=== PATIENT | male | born 1960 | race Caucasian/White ===

== ENCOUNTER → 2020-09-17 | Outpatient (CLI) | payer MEDICARE, OTHER ==
[~2020-09-17] MED LIST: ACTOS15 MG PO; AMLODIPINE BESYL5 MG PO; ASPIRIN81 MG PO; ATORVASTATIN CA80 MG PO; BACTRIM DS TAB1 EACH PO; CHLORTHALIDONE50 MG PO; CILOSTAZOL50 MG PO; CLINDAMYCIN HC300 MG PO; CLOPIDOGREL75 MG PO; COZAAR100 MG PO; GABAPENTIN300 MG PO; GLIPIZIDE10 MG PO; GLUCOPHAGE XR500 M1 PO; GLUCOTROL 10 MG10 MG PO; IMDUR ER TAB 3030 MG PO; ISOSORBIDE MONO30 MG PO; LIPITOR80 MG PO; LOPRESSOR 25 MG25 MG PO; LORTAB 7.5-3251 EACH PO; LOSARTAN POTAS100 MG PO; METFORMIN HCL500 M2 PO; METOPROLOL TART25 MG PO; NEURONTIN300 MG PO; NORVASC5 MG PO; PLAVIX75 MG PO
== END ==
LOC: KOH-I 13:13
DX: M14.671 Charcot's joint, right ankle and foot (principal); Z98.890 Other specified postprocedural states
CPT/HCPCS: 73630

== ENCOUNTER → 2020-10-15 | Outpatient (CLI) | payer MEDICARE, OTHER | LOC: KOH-I 11:28 | DX: M14.671 Charcot's joint, right ankle and foot (principal); S92.001A Unspecified fracture of right calcaneus, initial encounter for closed fracture; Z98.890 Other specified postprocedural states; X58.XXXA Exposure to other specified factors, initial encounter | CPT/HCPCS: 73610; 73630 ==

== ENCOUNTER → 2020-10-29 | Outpatient (CLI) | payer MEDICARE, OTHER | LOC: KOH-I 11:09 | DX: Z47.89 Encounter for other orthopedic aftercare (principal); M14.671 Charcot's joint, right ankle and foot | CPT/HCPCS: 73630 ==

== ENCOUNTER → 2020-11-26 | Outpatient (CLI) | payer MEDICARE, OTHER | LOC: KOH-I 10:47 | DX: M14.671 Charcot's joint, right ankle and foot (principal); T84.213A Breakdown (mechanical) of internal fixation device of bones of foot and toes, initial encounter; M19.071 Primary osteoarthritis, right ankle and foot | CPT/HCPCS: 73610; 73630 ==

== ENCOUNTER → 2020-12-03 | Outpatient (CLI) | payer MEDICARE, OTHER ==
[2020-12-03 11:58] LABS: HEMOGLOBIN 11.3 gm/dl (14.0-17.5); RED BLOOD COUNT 3.77 M/UL (4.20-5.50); WHITE BLOOD COUNT 6.9 K/UL (4.5-11.0)
[2020-12-03 12:16] LABS: BUN/CREATININE RATIO 23 (0-10)
== END ==
LOC: OPSV2 11:18
PROVIDERS: Podiatrist Foot & Ankle Surgery
DX: Z01.818 Encounter for other preprocedural examination (principal)
CPT/HCPCS: 36415; 80048; 83036; 85027; 93005

== ENCOUNTER → 2020-12-06 | Day surgery (SDC) | payer MEDICARE, OTHER ==
[~2020-12-06] VITALS: Ht 188 cm; Wt 111.1 kg
== END | disposition home or self-care (01) ==
LOC: OR 06:48
DX: T84.84XA Pain due to internal orthopedic prosthetic devices, implants and grafts, initial encounter (principal); M21.6X1 Other acquired deformities of right foot; T81.89XA Other complications of procedures, not elsewhere classified, initial encounter; E11.40 Type 2 diabetes mellitus with diabetic neuropathy, unspecified; E11.51 Type 2 diabetes mellitus with diabetic peripheral angiopathy without gangrene; I10 Essential (primary) hypertension; E78.5 Hyperlipidemia, unspecified; Z87.891 Personal history of nicotine dependence; Z98.890 Other specified postprocedural states; Z79.84 Long term (current) use of oral hypoglycemic drugs; Z79.02 Long term (current) use of antithrombotics/antiplatelets; Z79.899 Other long term (current) drug therapy
CPT/HCPCS: 73630; 76000; 82962; C1713; J0690; J1100; J2001; J2405; J2704; J2795; J3010; J7030; J7120

== ENCOUNTER → 2020-12-23 | Outpatient (CLI) | payer MEDICARE, OTHER | LOC: KOH-I 10:31 | DX: Z47.2 Encounter for removal of internal fixation device (principal) | CPT/HCPCS: 73630 ==

== ENCOUNTER → 2021-01-07 | Outpatient (CLI) | payer MEDICARE, OTHER | LOC: KOH-I 09:53 | DX: Z47.89 Encounter for other orthopedic aftercare (principal); M79.671 Pain in right foot; Z98.1 Arthrodesis status | CPT/HCPCS: 73630 ==

== ENCOUNTER → 2021-01-28 | Outpatient (CLI) | payer MEDICARE, OTHER | LOC: KOH-I 10:29 | DX: A52.16 Charcot's arthropathy (tabetic) (principal) | CPT/HCPCS: 73630 ==

== ENCOUNTER → 2021-02-18 | Outpatient (CLI) | payer MEDICARE, OTHER ==
[~2021-02-18] MED LIST changes: +ALENDRONATE SOD10 MG PO; +ALEVE220 M1 PO; +ASPIRIN EC325 MG PO; +DAILY VALUE1 EACH PO; +HYDROCODON-ACE1 EAC2 PO; +MIACALCIN 2200 IU/ML; +VITAMIN C500 M4 PO; +VITAMIN D21250 MCG PO
== END ==
LOC: KOH-I 09:32
DX: M79.671 Pain in right foot (principal); S92.001G Unspecified fracture of right calcaneus, subsequent encounter for fracture with delayed healing; S92.211 Displaced fracture of cuboid bone of right foot
CPT/HCPCS: 73630

== ENCOUNTER → 2021-03-11 | Outpatient (CLI) | payer MEDICARE | LOC: KOH-I 10:39 | DX: M14.671 Charcot's joint, right ankle and foot (principal); M79.671 Pain in right foot | CPT/HCPCS: 73630 ==

== ENCOUNTER → 2021-03-28 | Outpatient (CLI) | payer MEDICARE ==
[2021-03-28 13:52] LABS: HEMOGLOBIN 8.7 gm/dl (14.0-17.5); RED BLOOD COUNT 3.4 M/UL (4.20-5.50); WHITE BLOOD COUNT 6.4 K/UL (4.5-11.0)
[2021-03-28 14:11] LABS: BUN/CREATININE RATIO 19 (0-10)
== END ==
LOC: OPSV2 11:44
PROVIDERS: Orthopaedic Surgery
DX: Z01.818 Encounter for other preprocedural examination (principal); A52.16 Charcot's arthropathy (tabetic)
CPT/HCPCS: 36415; 71046; 80048; 85027; 85610; 85730; 93005

== ENCOUNTER → 2021-04-01 | Outpatient (CLI) | payer MEDICARE | LOC: LAB 10:54 | DX: Z01.812 Encounter for preprocedural laboratory examination (principal) | CPT/HCPCS: 36415; 86850; 86920 ==

== ENCOUNTER 2021-04-02 10:43 | Inpatient (IN) | payer MEDICARE ==
[~2021-04-02] VITALS: Ht 157.5 cm; Wt 104.3 kg
[~2021-04-02 10:43] MED LIST changes: -HYDROCODON-ACE1 EAC2 PO
[2021-04-02 11:22] LABS: HEMOGLOBIN 8.5 gm/dl (14.0-17.5); RED BLOOD COUNT 3.34 M/UL (4.20-5.50); WHITE BLOOD COUNT 5.8 K/UL (4.5-11.0)
[2021-04-02] MEDS ORDERED: HYDROCODON-ACE1 EAC2 PO (17:02)
[2021-04-03 06:29] LABS: RED BLOOD COUNT 3.19 M/UL (4.20-5.50)
[2021-04-03 06:30] LABS: WHITE BLOOD COUNT 7.3 K/UL (4.5-11.0)
[2021-04-03 07:22] LABS: BUN/CREATININE RATIO 29 (0-10)
[2021-04-04 02:56] LABS: HEMOGLOBIN 7.1 gm/dl (14.0-17.5)
[2021-04-04 03:00] LABS: RED BLOOD COUNT 2.82 M/UL (4.20-5.50); WHITE BLOOD COUNT 9.3 K/UL (4.5-11.0)
[2021-04-04 03:17] LABS: BUN/CREATININE RATIO 28 (0-10)
== END 2021-04-04 19:00 | disposition home health service (06) | DRG 617 ==
LOC: OR 10:43 → M/S 17:42 → OR 17:43 → M/S 04-04 19:00
PROVIDERS: ADMIT Orthopaedic Surgery
PROC: 0Y6H0Z3 Detachment at Right Lower Leg, Low, Open Approach (ICD-10-PCS; principal; 2021-04-02 14:30)
PROC: 30233N1 Transfusion of Nonautologous Red Blood Cells into Peripheral Vein, Percutaneous Approach (ICD-10-PCS; 2021-04-04)
DX: E11.69 Type 2 diabetes mellitus with other specified complication (principal); M86.8X7 Other osteomyelitis, ankle and foot; D62 Acute posthemorrhagic anemia; E11.610 Type 2 diabetes mellitus with diabetic neuropathic arthropathy; I10 Essential (primary) hypertension; E78.5 Hyperlipidemia, unspecified; E11.51 Type 2 diabetes mellitus with diabetic peripheral angiopathy without gangrene; Z20.822 Contact with and (suspected) exposure to COVID-19; Z79.02 Long term (current) use of antithrombotics/antiplatelets; Z79.01 Long term (current) use of anticoagulants; Z79.82 Long term (current) use of aspirin; Z79.84 Long term (current) use of oral hypoglycemic drugs; Z98.62 Peripheral vascular angioplasty status
CPT/HCPCS: 36415; 36430; 80048; 82962; 85025; 86850; 86900; 86901; 86920; 97161; 97166; 97530-GP-CQ; 97535; J0171; J0690; J1100; J2001; J2250; J2405; J2704; J2795; J3010; J7030; J7120; P9016; U0002